=== PATIENT | female | born 1955 | race African-American/Black ===

== ENCOUNTER 2022-09-18 12:15 | Inpatient (IN) | payer OTHER ==
[~2022-09-18] VITALS: Ht 152.4 cm; Wt 79.4 kg
--- NOTE | 2022-09-18 12:20 | NUR ---
BIB EMS, THERE ARE NO ER BEDS AVAILABLE DUE TO ED SATURATION SO PT IS WAITING IN EMS GURNEY OUTSIDE OF THE ER AREA.
--- NOTE | 2022-09-18 13:10 | NUR ---
Pt to room 4B via EMS gurney.
[2022-09-18 15:54] LABS: HEMATOCRIT 35.2 % (31.2-41.9); MEAN CORPUSCULAR VOLUME 85.5 fL (75.5-95.3); PLATELET COUNT (AUTO) 155 K/uL (179-408)
[2022-09-18 16:03] LABS: POTASSIUM 3.8 mmol/L (3.5-5.1)
--- NOTE | 2022-09-18 19:27 | NUR ---
Telephone call to Telemetry unit for a tele bed, charge nurse stated they are max out, no nurse to take the patient.
--- NOTE | 2022-09-18 19:35 | NUR ---
pt notified that care was authorized here at [facility]. Pt in agreement
--- NOTE | 2022-09-18 19:36 | NUR ---
JAMIEAR TO VIVEK TAVARES FOR ASSUMPTION OF CARE.
--- NOTE | 2022-09-18 19:40 | NUR ---
ASSISTED PATIENT ON A BEDPAN TO URINATED. GAIL CARE PROVIDED. INFORMED PATIENT THAT SHE WILL BE ADMITTED HERE PER INSURANCE AUTHORIZATION.
--- NOTE | 2022-09-18 20:23 | NUR ---
Informed Furniture Decals Inspector Donovan that patient needs to be admitted, stated no nurse can take patient and she cannot do anything about it.
--- NOTE | 2022-09-18 20:24 | NUR ---
Telephone call to Dr Sloan, spoke to [facility] [employer] service and will page Dr Sloan.
[2022-09-18] MEDS ORDERED: ONDANSETRON 4 MG/2 ML VIAL IV PRN (20:30)
[2022-09-18] MEDS ORDERED: IV D5 1/2 NS 1000 ML 1,000 ML IV PRN (20:30)
[2022-09-18] MEDS ORDERED: ACETAMINOPHEN 650 MG SUPP.RECT RC PRN (20:30)
[2022-09-18] MEDS ORDERED: MORPHINE SULFATE 4 MG/1 ML DISP.SYRIN IV ONE (21:45)
[2022-09-18] MEDS ORDERED: MORPHINE SULFATE 4 MG/1 ML DISP.SYRIN ONE (21:54)
--- NOTE | 2022-09-18 22:30 | NUR ---
Instructed patient to be NPO and states understanding.
--- NOTE | 2022-09-18 22:31 | NUR ---
Mixing Tumbler Operator Briana TAVARES called, was told patient is NPO. Surgery scheduled tomorrow. Latia TAVARES aware.
[2022-09-19] VITALS (7 sets, daily range): BP systolic 106–137; BP diastolic 54–68
[2022-09-19] MEDS ORDERED: MORPHINE SULFATE 4 MG/1 ML DISP.SYRIN IV PRN (01:00)
--- NOTE | 2022-09-19 01:47 | NUR ---
Patient refused to have alva catheter place at this time. Requesting to have it place later today before surgery.
--- NOTE | 2022-09-19 02:04 | NUR ---
Pt. admitted to Medsurg unit, under care of Dr. Amato. Belongings List completed.
--- NOTE | 2022-09-19 03:14 | NUR ---
received from er via stretcher to [id number] .V/s and assessment done .pt has no distress or complaint of pain at this time.pt remains npo for surgery in am.
[2022-09-19 06:26] LABS: HEMATOCRIT 31.2 % (31.2-41.9); MEAN CORPUSCULAR HEMOGLOBIN 28.7 uug (24.7-32.8); MEAN CORPUSCULAR VOLUME 85.3 fL (75.5-95.3); PLATELET COUNT (AUTO) 138 K/uL (179-408)
[2022-09-19 07:04] LABS: THYROID STIMULATING HORMONE 1.014 mIU/mL (0.358-3.740)
[2022-09-19 07:14] LABS: BILIRUBIN,TOTAL 0.4 mg/dL (0.2-1.0); MAGNESIUM 1.7 mg/dL (1.8-2.4); PHOSPHOROUS 3.6 mg/dL (2.5-4.9); POTASSIUM 3.7 mmol/L (3.5-5.1); TOTAL PROTEIN, SERUM 6.2 g/dL (6.4-8.2)
[2022-09-19] MEDS ORDERED: VANCOMYCIN 1000 MG VIAL ONE (07:15)
[2022-09-19] MEDS ORDERED: ROCURONIUM BROMIDE 50 MG/5 ML VIAL ONE (07:32)
[2022-09-19] MEDS ORDERED: FENTANYL CITRATE 100 MCG/2 ML AMPUL ONE ×2 (07:32→10:00)
[2022-09-19] MEDS ORDERED: BUPIVACAINE/EPI PF 0.25% 10 ML VIAL IJ ONE (08:38)
[2022-09-19] MEDS ORDERED: ENOXAPARIN SODIUM 40 MG/0.4 ML DISP.SYRIN SQ SCH (09:00)
[2022-09-19] MEDS: PANTOPRAZOLE SODIUM 40 MG VIAL IV SCH (09:00)
[2022-09-19] MEDS ORDERED: IV D5W-0.45% NS +20 KCL 1,000 ML IV ONE (10:33)
[2022-09-19] MEDS: IV D5W-0.45% NS +20 KCL 1,000 ML IV PRN (11:00)
--- NOTE | 2022-09-19 11:00 | NUR ---
RN RECEIVED REPORT FROM SKILLED NURSING FACILITY COUNSELOR, ARISTEO [facility] DAPHNEY. PATIENT ALERT & ORIENTED X4. VITAL SIGNS WITHIN NORMAL LIMITS. PATIENT COMPLAINED OF PAIN. RN EDUCATED THAT IMPORTANCE OF SPACING OUT THE FENTANYL GIVEN IN PACU & OTHER PAIN MEDICATIONS. PATIENT VERBALIZED UNDERSTANDING. RN NOTED KNEE IMMOBILIZER ON THE RIGHT KNEE, WITH DRESSING INTACT. PATIENT ABLE TO FEEL SENSATION AND MOVE RIGHT FOOT. PEDAL PULSE FELT. SKIN COLOR ON RIGHT FOOT NOT PALE OR BLUE. NO SIGNS AND SYMPTOMS OF COMPARTMENT SYNDROME. RUNNING D5% 1/2 NS + KCL 20MEQ 1000ML AT 75CC. RN ACKNOWLEDGED MD ORDERS. RN INITIATED PERIWICK VOIDING METHOD.
[2022-09-19] MEDS: MORPHINE SULFATE 2 MG/1 ML DISP.SYRIN IV PRN (12:20)
[2022-09-19] MEDS ORDERED: CARV12.52 PO (13:33)
[2022-09-19] MEDS ORDERED: SPIR25TA6 PO (13:33)
[2022-09-19] MEDS ORDERED: OMEP20TA5 PO (13:34)
[2022-09-19] MEDS ORDERED: SEMA0.25 SQ (13:44)
[2022-09-19] MEDS ORDERED: ERGO500040 PO (13:47)
[2022-09-19] MEDS ORDERED: CHOL500050 PO (13:47)
[2022-09-19] MEDS: MAGNESIUM SULFATE/D5W 100 ML IV SCH ×2 (14:19→15:29)
[2022-09-19] MEDS: CEFAZOLIN 1 G in IV DEXTROSE 5% 50 ML IV SCH ×2 (16:48→23:50)
[2022-09-19] MEDS ORDERED: CEFAZOLIN 1 G VIAL IM ONE (17:38)
[2022-09-19] MEDS ORDERED: LIDOCAINE-MPF 2% 5 ML VIAL IJ ONE (17:38)
[2022-09-19] MEDS ORDERED: ONDANSETRON 4 MG/2 ML VIAL IV ONE (17:38)
[2022-09-19] MEDS ORDERED: NEOSTIGMINE METHYLSULFATE 10 MG/10 ML VIAL IM ONE (17:38)
[2022-09-19] MEDS ORDERED: SEVOFLURANE 250 ML BOTTLE IH ONE (17:38)
[2022-09-19] MEDS ORDERED: GLYCOPYRROLATE 0.2 MG/ML VIAL IJ ONE (17:38)
[2022-09-19] MEDS ORDERED: PROPOFOL 200 MG/20 ML BOTTLE IV ONE (17:38)
[2022-09-19] MEDS ORDERED: DEXAMETHASONE SOD PHOSPHATE 4 MG INJ IV ONE (17:38)
[2022-09-19] MEDS ORDERED: SUCCINYLCHOLINE CHLORIDE 200 MG/10 ML VIAL IV ONE (17:38)
--- NOTE | 2022-09-19 19:48 | NUR ---
PATIENT IS ALERT AND ORIENTED X4, AND SPEAKS KINYARWANDA. VITALS SIGNS WITHIN NORMAL LIMITS. PATIENT PAIN MANAGED WELL WITH MORPHINE IV 2MG. PATIENT DENIES PAIN FOR THE REST OF SHIFT. RN STARTED PATIENT ON REGULAR DIET PER MD. PATIENT DENIES NAUSEA/VOMITING. DRESSING INTACT AND KNEE IMMOBILIZER ON THE RIGHT KNEE. PEDAL PULSES FELT, MOVEMENT AND SENSATION IN RIGHT FOOT INTACT. SKIN COLOR OF RIGHT FOOT WITHIN NORMAL LIMITS. SCD ON PATIENT'S LEFT FOOT. PATIENT TOLERATES IV MEDICATIONS WELL. NO SIGNS AND SYMPTOMS OF ACUTE DISTRESS. PATIENT VOIDS ADEQUATELY. PER PATIENT, PATIENT'S DAUGHTER WILL TAKE PHOTOS OF THE MEDICATIONS FOR MEDICATION RECONCILIATION. FALL PRECAUTIONS OBSERVED, BED IN LOW AND BED ALARM ON. ALL NEEDS MET AT THIS TIME. RN ENDORSED CARE TO ANUSHA HDZ.
[2022-09-19] MEDS: HYDROCODONE/APAP 10-325 MG TABLET PO PRN (21:43)
[2022-09-20 04:00] VITALS: BP 137/61
[2022-09-20] MEDS: HYDROCODONE/APAP 10-325 MG TABLET PO PRN ×2 (04:41→21:08)
[2022-09-20 06:58] LABS: HEMATOCRIT 31.3 % (31.2-41.9); MEAN CORPUSCULAR HEMOGLOBIN 28.5 uug (24.7-32.8); MEAN CORPUSCULAR VOLUME 85.8 fL (75.5-95.3); PLATELET COUNT (AUTO) 129 K/uL (179-408)
[2022-09-20 07:14] LABS: CREATININE 0.9 mg/dL (0.6-1.3); MAGNESIUM 2.3 mg/dL (1.8-2.4); PHOSPHOROUS 3.4 mg/dL (2.5-4.9); POTASSIUM 4.9 mmol/L (3.5-5.1)
[2022-09-20] MEDS: PANTOPRAZOLE SODIUM 40 MG VIAL IV SCH (08:21)
[2022-09-20] MEDS: ENOXAPARIN SODIUM 40 MG/0.4 ML DISP.SYRIN SQ SCH (08:22)
[2022-09-20] MEDS: MORPHINE SULFATE 2 MG/1 ML DISP.SYRIN IV PRN ×2 (08:35→12:01)
[2022-09-20 11:50] VITALS: BP 134/71
[2022-09-20] MEDS: IV D5W-0.45% NS +20 KCL 1,000 ML IV PRN (15:13)
[2022-09-20 16:04] VITALS: BP 148/62
[2022-09-20] MEDS ORDERED: ERGO50CA PO (16:34)
[2022-09-20] MEDS ORDERED: CARV25TA2 PO (16:34)
[2022-09-20] MEDS ORDERED: SPIR25TA PO (16:34)
[2022-09-20] MEDS ORDERED: CHOL100053 PO (16:36)
[2022-09-20] MEDS ORDERED: SUCR1TAB31 PO (16:42)
[2022-09-20] MEDS ORDERED: ATOR40TA PO (16:42)
[2022-09-20] MEDS ORDERED: MELO-107 PO (16:58)
[2022-09-20] MEDS ORDERED: OMEP40CA21 PO (16:58)
[2022-09-20] MEDS ORDERED: MELOXICAM 7.5 MG TABLET PO PRN (17:30)
[2022-09-20] MEDS ORDERED: Medication Not On Formulary EA (Cholecalciferol (Vitamin D3) (Vitamin D3) 50,000 UNIT) PO SCH (17:30)
[2022-09-20] MEDS: CARVEDILOL 25 MG TABLET PO SCH (17:53)
[2022-09-20 20:00] VITALS: BP_SYST 141; BP_SYST 148; BP_DIAS 62; BP_DIAS 66
[2022-09-20] MEDS ORDERED: SUCRALFATE 1 G TABLET PO SCH (21:00)
[2022-09-20] MEDS: ATORVASTATIN 40 MG TABLET PO SCH (21:07)
[2022-09-21] VITALS: BP 141/66
[2022-09-21 04:00] VITALS: BP 116/68
[2022-09-21 06:36] LABS: HEMATOCRIT 32.6 % (31.2-41.9); MEAN CORPUSCULAR HEMOGLOBIN 28.9 uug (24.7-32.8); MEAN CORPUSCULAR VOLUME 85.4 fL (75.5-95.3); PLATELET COUNT (AUTO) 144 K/uL (179-408)
[2022-09-21] MEDS: HYDROCODONE/APAP 10-325 MG TABLET PO PRN ×3 (06:40→21:23)
[2022-09-21 06:52] LABS: CREATININE 0.9 mg/dL (0.6-1.3); MAGNESIUM 1.9 mg/dL (1.8-2.4); PHOSPHOROUS 2.9 mg/dL (2.5-4.9); POTASSIUM 4.4 mmol/L (3.5-5.1)
[2022-09-21 08:00] VITALS: BP 132/65
[2022-09-21] MEDS ORDERED: Medication Not On Formulary EA (Omeprazole 40 MG) PO SCH (09:00)
[2022-09-21] MEDS ORDERED: HYDR-3980 PO (10:09)
[2022-09-21] MEDS: SUCRALFATE 1 G TABLET PO SCH ×4 (10:20→21:00)
[2022-09-21] MEDS: CARVEDILOL 25 MG TABLET PO SCH ×2 (10:21→16:45)
[2022-09-21] MEDS: ENOXAPARIN SODIUM 40 MG/0.4 ML DISP.SYRIN SQ SCH (10:22)
[2022-09-21] MEDS: PANTOPRAZOLE SODIUM 40 MG VIAL IV SCH (10:23)
[2022-09-21] MEDS: SPIRONOLACTONE 25 MG TABLET PO SCH (10:23)
[2022-09-21 12:00] VITALS: BP 125/69
[2022-09-21 15:18] VITALS: BP 123/72
[2022-09-21 16:00] VITALS: BP 123/72
[2022-09-21] MEDS: ATORVASTATIN 40 MG TABLET PO SCH (21:22)
[2022-09-22 04:00] VITALS: BP 125/74
[2022-09-22] MEDS: SUCRALFATE 1 G TABLET PO SCH ×2 (06:09→11:30)
[2022-09-22] MEDS: HYDROCODONE/APAP 10-325 MG TABLET PO PRN ×2 (06:10→13:21)
[2022-09-22] MEDS ORDERED: PANTOPRAZOLE SODIUM 40 MG TABLET.DR PO SCH (07:00)
[2022-09-22 08:00] VITALS: BP 111/68
[2022-09-22] MEDS: CARVEDILOL 25 MG TABLET PO SCH (08:48)
[2022-09-22] MEDS: SPIRONOLACTONE 25 MG TABLET PO SCH (08:48)
[2022-09-22] MEDS: ENOXAPARIN SODIUM 40 MG/0.4 ML DISP.SYRIN SQ SCH (08:53)
[2022-09-22 11:55] VITALS: BP 114/62
[2022-09-22 12:00] VITALS: BP 114/62
--- NOTE | 2022-09-22 13:53 | NUR ---
Large BM noted.
--- NOTE | 2022-09-22 13:54 | NUR ---
GUSSET MAKER CALLED [facility] TO GIVE REPORT, NO ONE WAS AVAILABLE TO TAKE REPORT. LEFT PHONE NUMBER FOR NURSE TO CALL BACK. MARIANNA Harrison RN
[2022-09-23] MEDS ORDERED: ERGOCALCIFEROL 50,000 UNIT CAPSULE PO SCH (09:00)
== END 2022-09-22 14:10 | DRG 517 ==
LOC: ER 12:15 → TRANSITION 23:32 → TELE3 09-19 01:28 → MEDSURG3 09-19 02:05
PROVIDERS: ADMIT Registered Nurse; ATTEND Registered Nurse
PROC: 0QSD04Z Reposition Right Patella with Internal Fixation Device, Open Approach (ICD-10-PCS; principal; 2022-09-19)
DX: S82.041A Displaced comminuted fracture of right patella, initial encounter for closed fracture (principal); E03.9 Hypothyroidism, unspecified; W01.0XXA Fall on same level from slipping, tripping and stumbling without subsequent striking against object, initial encounter; M81.0 Age-related osteoporosis without current pathological fracture; Z20.822 Contact with and (suspected) exposure to COVID-19; E66.9 Obesity, unspecified; Z68.34 Body mass index [BMI] 34.0-34.9, adult; M19.90 Unspecified osteoarthritis, unspecified site; Y93.9 Activity, unspecified; Y92.009 Unspecified place in unspecified non-institutional (private) residence as the place of occurrence of the external cause
CPT/HCPCS: 36415; 71045; 73562; 83550; 83735; 84100; 84443; 84484; 85025; 85730; 93005; A4649; C1713; C9113; G0378; J0330; J0690; J1100; J1650; J2270; J2405; J3010; J3370; J3475; J3490